=== PATIENT | male | born 1990 | race Two or more races ===

== ENCOUNTER 2025-01-24 19:19 | Emergency (ER) | payer OTHER ==
[~2025-01-24] VITALS: Ht 180.3 cm; Wt 128.9 kg
[2025-01-24] MEDS ORDERED: IBUP-1456 PO (21:54)
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
[2025-01-24 22:09] VITALS: BP 130/92; PULSE 87; RESP 16; TEMP 98.9; O2SAT 96
== END 2025-01-24 22:28 | disposition home or self-care (01) ==
LOC: ER 19:19
DX: S40.011A Contusion of right shoulder, initial encounter (principal); V59.40XA Driver of pick-up truck or van injured in collision with unspecified motor vehicles in traffic accident, initial encounter; Y93.I9 Activity, other involving external motion; Y92.488 Other paved roadways as the place of occurrence of the external cause; Y99.8 Other external cause status